=== PATIENT | male | born 1990 | race Caucasian/White ===

== ENCOUNTER 2017-06-01 08:27 | Emergency (ER) | payer BC ==
[~2017-06-01] VITALS: Ht 172.7 cm; Wt 87.7 kg
[2017-06-01] MEDS ORDERED: DEXAMETHASONE 4 MG TABLET PO ONE (09:00)
[2017-06-01] MEDS ORDERED: ACETAMINOPHEN 500 MG TABLET PO ONE (09:00)
[2017-06-01] MEDS ORDERED: IBUPROFEN 600 MG TABLET PO ONE (09:00)
[2017-06-01 10:35] VITALS: BP 133/79
== END 2017-06-01 10:35 | disposition home or self-care (01) ==
LOC: EMS 08:29
DX: J02.8 Acute pharyngitis due to other specified organisms (principal); B97.89 Other viral agents as the cause of diseases classified elsewhere
CPT/HCPCS: 87430; 99284; J8540